=== PATIENT | female | born 1945 | race Caucasian/White ===

== ENCOUNTER 2016-03-13 09:15 | Inpatient (IN) | payer OTHER, MEDICARE ==
--- NOTE | 2016-03-12 21:15 | GHP ---
[f rep st] PREOP HISTORY AND PHYSICAL Corrected report Date of surgery: March 13, 2016. PROBLEM: Right knee severe degenerative arthritis. HISTORY OF PRESENT ILLNESS: The patient is a 70-year-old female, who will be admitted for a right total knee arthroplasty with Dr. Law at the [facility] on March 13, 2016. The patient has had progressive right knee pain over the past several years. Her activities have become severely limited. She has tried and failed oral anti-inflammatories and viscosupplementation injections. She has also tried activity modification, and self-directed physical therapy exercises. Because of her persistent pain, and recalcitrant response to conservative therapies, the patient has elected to proceed with a right total knee arthroplasty. She has a history of a left total knee arthroplasty in 2009 with a very good result. PAST MEDICAL HISTORY: Noncontributory. No history of MRSA, PE, DVT, CAD, or NH. CURRENT MEDICATIONS: Celebrex 200 mg, Citracal, and Flonase nasal spray. MEDICATION ALLERGIES: She has no known drug allergies. SOCIAL HISTORY: The patient is . She lives in [place], [place]. She is retired. She is a nonsmoker. Moderate alcohol intake. FAMILY HISTORY: Noncontributory. PAST SURGICAL HISTORY: Pertinent for left total knee arthroplasty in 2009 and ganglion cyst removal of the right wrist in 2012. PHYSICAL EXAMINATION: GENERAL: She is an otherwise healthy-appearing 70-year- old female. VITAL SIGNS: Height is 5 feet 1 inch tall, weight 157 pounds. BMI 29.7. HEENT: Head is normocephalic, atraumatic. Eyes are PERRLA. Conjunctivae and sclerae are clear. She has good oral hygiene without any loose teeth. LUNGS: Clear. HEART: Regular rate and rhythm without murmurs, gallops, or rubs. EXTREMITIES: Pertinent findings are limited to the patient' s right knee. She has a mild to moderate right knee effusion along with lateral joint line tenderness. She has full knee extension and 115 degrees of flexion with subpatellar crepitus noted. The knee is stable to exam. DIAGNOSTIC IMAGING: Recent x-rays taken of the patient's right knee shows moderate to severe degenerative arthritis primarily of the lateral and patellofemoral compartments. She has increased subchondral sclerosis and peripheral osteophyte formation. She also has near scto-ut-rnyd findings with significantly decreased joint space. IMPRESSION: On admission, right knee severe degenerative arthritis. PLAN: The plan will be for the patient to undergo a right total knee arthroplasty with Dr. Law at [facility] on March 13, 2016. The surgery has been described to the patient including the risks, benefits, and expectations. She understands the risks of infection, nerve injury, persistent knee pain and/or stiffness as well as possible need for future revision. All her questions have been answered and she consented to surgery here in the office. /[id number]/MODL Boogie acc#, 03/13/16, christine BOURNE
[~2016-03-13 09:15] MED LIST: ACETAMINOPHEN 325 MG TAB PO ONE; CEFAZOLIN 2 GM/DEXTR 100 ML IV ONE; CHLORHEXIDINE GLUC HIBICLENS 118 ML BTL TP ONE; DEXAMETHASONE 4 MG/ML VIAL IVP ONE; FAMOTIDINE 20 MG TAB PO ONE; POVIDONE-IODINE 20 ML in SODIUM CL IRRIG SOLUTION 500 ML IRR ONE; ROPI/epiNEPH/KETOROLAC JOINT COCKTAIL IU ONE; TRANEXAMIC ACID 725 MG in NS 100 ML IV ONE
[2016-03-13] MEDS ORDERED: FAMOTIDINE 20 MG TAB ONE (09:47)
[2016-03-13] MEDS ORDERED: DEXAMETHASONE 4 MG/ML VIAL ONE (09:47)
[2016-03-13] MEDS ORDERED: CEFAZOLIN 2 GM/DEXTROSE/100 ML BAG IV ONE (09:47)
[2016-03-13] MEDS ORDERED: ACETAMINOPHEN 325 MG TAB ONE (09:47)
[2016-03-13] MEDS ORDERED: LIDOCAINE 1% 5 ML SDV ID PRN (10:47)
[2016-03-13] MEDS ORDERED: LR 1,000 ML IV ONE (10:47)
[2016-03-13] MEDS ORDERED: ceFAZolin 1 GM/5 ML SYR ONE (11:22)
[2016-03-13] MEDS ORDERED: PROPOFOL/EMULSION 500 MG/50 ML BOTTLE IV ONE (11:39)
[2016-03-13] MEDS ORDERED: MIDAZOLAM 2 MG/2 ML VIAL ONE ×2 (12:23→14:23)
[2016-03-13] MEDS ORDERED: fentaNYL 100 MCG/2 ML INJ ONE (12:27)
--- NOTE | 2016-03-13 14:23 | POSTOPPROG ---
Post Op Note Date of Operation: 03/13/16 Surgeon: Doyle Law Cert Occupational Therapy Asst: Servando/Benigno Anesthesiologist: Jimmy Anesthesia: IV Sedation, Spinal Post-op Diagnosis: right knee arthritis Procedure: R TKA Inf/Abcess present in the surg proc area at time of surgery?: No EBL: 50-100
[2016-03-13] MEDS ORDERED: ROPIVACAINE HCL 150 MG/30 ML INJ ONE (14:28)
[2016-03-13] MEDS ORDERED: diphenhydrAMINE 25 MG CAP PO PRN (14:43)
[2016-03-13] MEDS ORDERED: TEMAZEPAM 15 MG CAP PO PRN (14:43)
[2016-03-13] MEDS ORDERED: POLYETHYLENE GLYCOL 3350 17 GM PKT PO PRN (14:43)
[2016-03-13] MEDS ORDERED: LACTULOSE 20 GM/30 ML UDCUP PO PRN (14:43)
[2016-03-13] MEDS ORDERED: PROMETHAZINE HCL 25 MG/ML VIAL IVP PRN (14:43)
[2016-03-13] MEDS ORDERED: PROMETHAZINE HCL 25 MG SUPPR PR PRN (14:43)
[2016-03-13] MEDS ORDERED: oxyCODONE IR 5 MG TAB PO PRN (14:43)
[2016-03-13] MEDS ORDERED: DIPHENOXYLATE/ATROPINE LOMOTIL 1 TAB PO PRN (14:43)
[2016-03-13] MEDS ORDERED: MAGNESIUM HYDROXIDE 30 ML UDCUP PO PRN (14:43)
[2016-03-13] MEDS ORDERED: KETOROLAC 30 MG/1 ML SDV IVP PRN (14:43)
[2016-03-13] MEDS ORDERED: traMADol 50 MG TAB PO PRN (14:43)
[2016-03-13] MEDS ORDERED: PHARMACY PAIN CONSULT 1 EA MISC PRN (14:43)
[2016-03-13] MEDS ORDERED: ONDANSETRON 4 MG/2 ML VIAL IVP PRN (14:43)
[2016-03-13] MEDS ORDERED: NS 500 ML IV PRN (14:43)
[2016-03-13] MEDS ORDERED: CYCLOBENZAPRINE 10 MG TAB PO PRN (14:43)
[2016-03-13] MEDS ORDERED: ONDANSETRON DISINTEGRATING 4 MG TAB PO PRN (14:43)
[2016-03-13] MEDS ORDERED: BISACODYL 10 MG SUPP PR PRN (14:43)
[2016-03-13] MEDS ORDERED: LR 1,000 ML IV SCH (15:00)
--- NOTE | 2016-03-13 15:57 | GOP ---
[f rep st] OPERATIVE REPORT DATE OF OPERATION: 03/13/2016 SURGEON: Doyle Law MD CORK WIRER: 1. Denis Al, PAC. 2. Elfego Pelaez TESTBOARD OPERATOR. ANESTHESIA: Combination of Marcaine spinal, IV sedation, and adductor canal block. ANESTHESIOLOGIST: Patty Marquez MD PREOPERATIVE DIAGNOSIS: Right knee severe degenerative arthritis. POSTOPERATIVE DIAGNOSIS: Right knee severe degenerative arthritis. PROCEDURE PERFORMED: 03/13/2016: A right total knee arthroplasty, cemented, Adam and Nephew Journe y II, posterior stabilized. FINDINGS: ESTIMATED BLOOD LOSS: The estimated blood loss following placement of the tourniquet was about 100 c c or less. DESCRIPTION OF PROCEDURE: The patient was given 2 g of IV Ancef preoperatively within 60 minutes of surgery. She also received IV tranexamic acid at a dose of 10 mg/kg. She was placed on the operatin g room table and given spinal anesthesia with Marcaine by Dr. Marquez. She was then placed supine and given IV sedation. A Cancino catheter was not used. She wore a ROSELINE stocking and SCD on the nonoperat stefanie leg. Her right lower extremity was prepped with a combination of Betadine and alcohol. She deve loped a mild rash on the lower leg from her ChloraPrep preparation the night before surgery. Her rig ht lower extremity was draped free using sterile sheets, stockinette, and Ioban plastic adhesive drap e. The lower leg was wrapped with a compressive Coban. Her leg was exsanguinated with elevation and a 6-inch compressive wrap, and the tourniquet was inflated to 250 mmHg. The World Health Organization time-out was performed to verify the correct surgical side and the [facility] patient identity. The Vaughan time-out was also performed. The [facility] leg holding device was sterilely attached to the operating room table and used throughout the procedure to help position the knee. A straight midline incision was made centered on the cintron la. Subcutaneous tissues were sharply divided and hemostasis was obtained using electrocautery. A s ubcutaneous flap was developed, and the capsule and synovium were opened in a medial parapatellar fas hion. Extensive degenerative changes were present, particularly in the medial compartment and patell ofemoral joint. Her medial compartment was eroded down to subchondral bone. The medial capsule and periosteum were elevated off the rim and medial tibial plateau all the way around to the posteromedia l corner of the knee. Her medial collateral ligament was released enough to balance the medial side of the knee. In order to improve exposure, the patella was prepared first. The original thickness of the patella was measured. Peripheral osteophytes were removed. I cut a flat surface on the back of the patella. It was sized for a 32 mm resurfacing component. I removed enough bone from the patella such that t he remaining bone plus the thickness of the patella recreated the original thickness of the patellar component. The composite thickness was 20 mm. The intramedullary alignment guide system was used to set up the distal femoral cut. The distal femu r was cut in 6 degrees of valgus. I made a +2 mm cut on the distal femur. The sizing jig was used t o determine proper femoral sizing. I shifted the #3 jig anteriorly 1 mm in order to accommodate a si ze 3 femoral component without notching the anterior cortex. The 5-in-1 cutting block was applied, a nd the anterior and posterior condylar cuts and chamfer cuts were made. The final jig was used to re move the central portion of the distal femur to accommodate the posterior stabilized femoral componen t. I was careful to determine proper rotation by referencing off Whitesides line. Each cut was chec ked for accuracy before and after it was made. Her femur was sized for a size 3 posterior stabilized component. The trial component was tapped securely in place and was an excellent fit. Next, the tibia was prepared. The proximal tibial cut was made using the extramedullary alignment gu bossman system. The cut was made in a few degrees of posterior slope. I was careful to achieve proper v arus valgus alignment and proper rotation. The posterior compartment was cleared of meniscal remnant s. Osteophytes were removed from the back of her femoral condyles. I checked the flexion extension gaps, and they were equal and balanced. The tibia was sized for a size 2 component. With the trial components in place, I selected a 10 mm p olyethylene posterior stabilized tibial insert. The knee came to full extension and flexed to 130 de grees. There was no overstuffing in flexion. Her collateral ligaments were stable and balanced in 9 0 degrees of flexion and full extension. The trial patellar button was applied, and patellar trackin g was checked. Tracking was excellent without any digital pressure. 40 mL of the joint anesthetic cocktail were injected into the posterior capsule, the periarticular st ructures, the quadriceps muscle and tendon areas, and the subcutaneous tissues along the skin edges. A second dose of IV tranexamic acid was given at a dose of 10 mg/kg. The surfaces were prepared for cementing. They were carefully cleaned with the pulsating lavage irri gation and thoroughly dried. The CarboJet device was used to blow dry the cancellous surfaces. A do uble batch of methylmethacrylate cement with tobramycin was mixed. While it was still in a semi-liqu id state, all [address] components were cemented in place. Excess cement was removed before it hardened. The 10 mm trial tibial insert was re-tried and was the proper thickness. The actual component was in serted and locked into place. The knee was thoroughly irrigated 1 final time with a dilute Betadine solution. The tourniquet was deflated, and the total tourniquet time was 53 minutes. The vastus medialis portion of the extensor mechanism was repaired with several interrupted figure-of -eight #2 FiberWire sutures. The capsule and synovium were closed first with multiple interrupted fi [id number] PDS sutures, followed by a running #2 barbed Ethicon Stratafix PDO suture. The subcu taneous tissues were closed with a running 0 barbed Ethicon Stratafix Monoderm suture. The skin was closed with a running 3-0 barbed Ethicon Stratafix Monoderm subcuticular suture. The skin was sealed with half-inch Steri-Strips. The wound was covered with Xeroform gauze and 4 x 4's, and the knee wa s wrapped with Kerlix and 6-inch compressive wrap. A long leg ROSELINE stocking and SCD were applied foll owed by the cooling device. The patient wore a stocking and SCD on the opposite leg during the proce dure. I used a size 3 cemented Adam and Nephew Oxinium posterior stabilized femoral component, size 2 ceme nted tibial base plate, a 10 mm posterior stabilized tibial insert, and a 32 mm cemented round all-po lyethylene resurfacing patellar component. COUNTS: The sponge and needle count were correct on 2 occasions. The patient was awakened from anesthesia, transferred to her [facility], and taken to PACU in sa tisfactory condition. There were no recognized intraoperative complications. In the PACU, for addit ional postoperative pain control, Dr. Patty Marquez performed an adductor canal block to the right lowe r extremity. [place] Al and Elfego Pelaez acted as surgical assistants. Their assistance was a medical necess ity. /[id number]/MODL
--- NOTE | 2016-03-13 15:59 | DX ---
Two Views Right Knee: History: Postoperative followup. Comparison: None available. Findings: Postoperative changes of total knee arthroplasty are noted. Alignment is anatomic. No compl ication is seen. Impression: Status post total knee arthroplasty with no visible complications.
[2016-03-13] MEDS ORDERED: HYDROCODONE/APAP 5/325 TAB ONE (17:17)
[2016-03-13] MEDS: TRANEXAMIC ACID 650 MG TAB PO SCH ×2 (17:29→20:04)
[2016-03-13] MEDS: ACETAMINOPHEN 325 MG TAB PO SCH (17:57)
[2016-03-13] MEDS: FAMOTIDINE 20 MG TAB PO SCH (20:03)
[2016-03-13] MEDS: ceFAZolin 2 GM/DEXTROSE 100 ML IV SCH (20:03)
[2016-03-13] MEDS: ASPIRIN 325 MG TAB PO SCH (20:03)
[2016-03-13] MEDS: SENNOSIDES/DOCUSATE SODIUM TAB PO SCH (20:04)
[2016-03-14] MEDS: ACETAMINOPHEN 325 MG TAB PO SCH ×3 (00:21→12:40)
[2016-03-14] MEDS: ceFAZolin 2 GM/DEXTROSE 100 ML IV SCH (04:30)
[2016-03-14 05:53] LABS: HEMATOCRIT 38.5 % (38.0-47.0); HEMOGLOBIN 12.8 g/dL (12.6-16.3)
--- NOTE | 2016-03-14 07:10 | SOAPPROG ---
SOAP Progress Note Assessment/Plan: Assessment: Afebrile. Awake and alert. Mild pain so far. Good knee ROM. Has been walking in room. H/H is good. Films look good. Plan: Up with PT. DC later today. 03/14/16 07:09 Objective: Vital Signs Temp Pulse Resp BP Pulse Ox 36.4 C 67 14 148/76 H 93 03/14/16 04:29 03/14/16 04:29 03/14/16 04:29 03/14/16 04:29 03/14/16 04:29 Laboratory Results 03/14/16 04:45 03/13/16 03/14/16 03/15/16 05:59 05:59 05:59 Intake Total 2125 Output Total 1650 Balance 475 ICD10 Worksheet Patient Problems: Problems Problem Status Diagnosed Osteoarthritis of right knee Acute
[2016-03-14 07:22] VITALS: BP 171/92; PULSE 70; RESP 17; TEMP 97.5; O2SAT 96
--- NOTE | 2016-03-14 07:27 | PDIAF ---
- Diagnosis Diagnosis: right knee arthritis Code Status: Full Code - Medication Management Discharge Medications: Medications to Continue on Transfer PARoxetine HCL [Paxil 20mg (*)] 20 mg PO DAILY 09/20/12 [Last Taken 03/12/16 11: 00] Cholecalciferol Vit D3 [Vitamin D3 (*)] 1,000 units PO DAILY 02/29/16 [Last Taken Unknown] Acetaminophen [Tylenol 325mg (*)] 650 mg PO Q6HRS #0 tab 03/14/16 [Last Taken Unknown] Aspirin [Aspirin 325 mg (*)] 325 mg PO DAILY #21 tab 03/14/16 [Last Taken Unknown] Ferrous Sulfate [Slow Fe 140 MG (*)] 140 mg PO DAILY #30 tab.er 03/14/16 [Last Taken Unknown] Ondansetron Odt [Zofran Odt 4 mg (*)] 4 mg PO Q4HRS PRN #0 tab 03/14/16 [Last Taken Unknown] oxyCODONE IR [Oxycodone Ir (*)] 5 - 10 mg PO Q3HRS PRN #0 tab 03/14/16 [Last Taken Unknown] traMADol [Ultram 50 mg (*)] 50 mg PO Q6HRS PRN #0 tab 03/14/16 [Last Taken Unknown] Discharge Medications: Refer to the Discharge Home Medication list for PRN reason. PICC Care - Routine: N/A - Orders Services needed: Home Care, Physical Therapy Home Care Face to Face: I certify that this patient was under my care and that I had the required [id number] encounter meeting the encounter requirements on the discharge day. My findings support the fact that the patient is homebound as defined in CMS Chapter 7 Medicare Benefits Manual 30.1.1, The condition of the patient is such that there exists a normal inability to leave home and consequently, leaving home would require a considerable and taxing effort. Diet Recommendation: no restrictions on diet Diet Texture: Regular Texture Diet Timothy Stockings Discontinue Date: 1 week Wound Care Instructions: keep clean and dry. You may shower. Activity/Weight Bearing Restrictions: as tolerated. - Follow Up Care Current Providers and Referrals: Christopher Hayes MD [Primary Care Provider] - Doyle Law MD [Medical Doctor] - 03/28/16 2:00 pm
[2016-03-14] MEDS: TRANEXAMIC ACID 650 MG TAB PO SCH (08:40)
[2016-03-14] MEDS: SENNOSIDES/DOCUSATE SODIUM TAB PO SCH ×2 (08:40→08:49)
[2016-03-14] MEDS: ASPIRIN 325 MG TAB PO SCH (08:41)
[2016-03-14] MEDS: FAMOTIDINE 20 MG TAB PO SCH (08:42)
--- NOTE | 2016-03-14 08:46 | DX ---
Bone Length Study Indication: Right full knee arthroplasty. Findings: There is a mild pelvic tilt. Bilateral arthritic changes are present at the hips. Bilateral total knee arthroplasties are present. Mild osteoarthritic changes are present at the ankle. No visi ble limb-length discrepancy. Impression: Bilateral total knee arthroplasties in good anatomic positions.
[2016-03-14] MEDS ORDERED: CHOLECALCIFEROL VIT D3 1,000 UNITS TAB PO SCH (09:00)
[2016-03-14] MEDS ORDERED: FERROUS SULFATE 140 MG TAB.ER PO SCH (09:00)
[2016-03-14] MEDS ORDERED: PARoxetine HCL 20 MG TAB PO SCH (09:00)
--- NOTE | 2016-03-14 09:45 | GDS ---
[f rep st] DISCHARGE SUMMARY ADMISSION DIAGNOSIS: Right knee severe degenerative arthritis DISCHARGE DIAGNOSIS: Right knee severe degenerative arthritis. OPERATION PERFORMED: On 03/13/2016, right total knee arthroplasty. POSTOPERATIVE COMPLICATIONS: None. CONDITION ON DISCHARGE: Improved. DESCRIPTION OF HOSPITAL COURSE: The patient was admitted to the hospital on the morning of surgery. Her admission CBC was normal. The same day, under a combination of Marcaine, spinal and IV sedation , she underwent a right total knee arthroplasty. Postoperatively, she was treated with multimodal DV T prophylaxis including aspirin. On the 1st postoperative day, her hemoglobin and hematocrit were 12 .8 and 38.5. She did not require any transfused blood. She was seen by Physical Therapy and made go od progress with ambulation and stairs. By the time of discharge, she was afebrile and was independe nt walking. DISPOSITION: Patient is discharged to her home. She will have home physical therapy. Use ROSELINE stock ings for 1 week. Continue aspirin 325 mg p.o. daily for 21 days. She may progress to full weightbea ring as tolerated on the right. She has prescriptions for oxycodone and tramadol for pain control. I will see her back in the office on 03/28/2016. If there are any problems, she is to call me at the office. /[id number]/MODL
== END 2016-03-14 13:48 | disposition home or self-care (01) | DRG 470 ==
LOC: F3N 09:33
PROVIDERS: ADMIT Orthopaedic Surgery; ATTEND Orthopaedic Surgery
PROC: 0SRC0J9 Replacement of Right Knee Joint with Synthetic Substitute, Cemented, Open Approach (ICD-10-PCS; principal; 2016-03-13 11:15)
DX: M17.11 Unilateral primary osteoarthritis, right knee (principal); Z96.652 Presence of left artificial knee joint
CPT/HCPCS: 97116-GP; 97161-GP; 97165-GO; C1713; G8978-GP-CJ; G8979-GP-CI; G8980-GP-CI; G8987-GO-CI; G8988-GO-CH; G8989-GO-CH; J0171; J0690; J1100; J1885; J2250; J2704; J2795; J3010